=== PATIENT | female | born 1980 | race Caucasian/White ===

== ENCOUNTER → 2020-07-14 11:47 | Outpatient (CLI) | payer OTHER, MEDICAID, SELFPAY ==
[2020-07-16 00:41] LABS: Chlamydia trachomatis NAA Negative (Negative); Neisseria gonorrhoeae NAA Negative (Negative)
== END ==
PROVIDERS: Visit Provider Obstetrics & Gynecology
DX: Z34.82 Encounter for supervision of other normal pregnancy, second trimester (principal); Z3A.18 18 weeks gestation of pregnancy
CPT/HCPCS: 87491; 87591

== ENCOUNTER → 2020-07-24 10:34 | Outpatient (CLI) | payer OTHER, MEDICAID, SELFPAY ==
--- NOTE | 2020-07-24 10:35 | DI.US.S_ITS ---
PROCEDURE: US OB >= 14 WEEKS FETUS INDICATIONS: Anatomy US after 07/20/20 please OUTSIDE/PRIOR DATING DATA: Last menstrual period (LMP): 03/06/20. LMP-based estimated date of delivery (HANS): 12/11/20 . First dating scan (date and location): This examination.. Estimated date of delivery (HANS) from first dating scan: 12/05/20 . TECHNIQUE: Real-time scanning was performed of the fetus, with image documentation and biometric measurements. Endovaginal scanning: Not performed COMPARISON: [facility], US, US OB >= 14 WEEKS FETUS, 07/14/2020, 11:10. FINDINGS: General: A single living intrauterine gestation is present. Presentation: Vertex. Placenta: Placental position is anterior , without previa. Amniotic fluid index: 15.2 cm, normal range is 5-24 cm. Largest pocket 5.2 cm. heart rate: 143 beats per minute. Maternal cervical canal: 4.5 cm long. Normal lower limit is 2.5 cm. biometrics: Biparietal diameter: 5.0 cm, 21 weeks 2 days Head circumference: 18.4 cm, 20 weeks 5 days Abdominal circumference: 15.8 cm, 20 weeks 6 days Femur length: 3.4 cm, 30 20 weeks 5 days Estimated gestational age from initial scan: not applicable. Composite gestational age from present scan: 20 weeks 6 days Estimated weight and percentile: 379 g, 57th percentile Measurement variability for biometric dating: +/- 7 days from 14 weeks to 15 weeks 6 days gestation, +/- 10 days from 16 weeks to 21 weeks 6 days gestation, +/- 2 weeks from 22 weeks to 27 weeks 6 days gestation, +/- 3 weeks for 28 weeks gestation or later. weight reference: 4500 g or EFW >90/95% is considered macrosomia or large for gestational age. EFW <10% is small for gestational age. EFW 5% or less is considered intra-uterine growth restriction. Anatomic survey: Neuro: Ventricles are non-dilated at less than 10 mm. Bilateral choroid plexus cysts measuring 4 x 2 x 2 mm on the left and 3 x 4 x 5 mm on the right. Cisterna magna is normal at 3-11 mm. Cerebellum is normal in size and morphology. Nuchal skin fold: Normal at less than 6 mm between 14-21 weeks gestational age. Face: Nose and lips, facial profile are normal. Spine: No evidence for spina bifida. Heart: 4-chambered heart is present, with normal ventricular outflow tracts. Diaphragm: Diaphragm is intact. Stomach: Left-sided stomach is present. Kidneys: No hydronephrosis. Normal is less than 5 mm in 2nd trimester, less than 7 mm in 3rd trimester. Cord: 3-vessel cord has orthotopic insertion. Bladder: Normal in size. Extremities: All 4 extremities identified. IMPRESSION: Single living intrauterine fetus in vertex presentation. Ultrasound HANS of 12/05/20, concordant with LMP as above. Incidentally noted choroid plexus cysts, which are technically nonspecific finding. Please correlate with aneuploid screening results. Otherwise, normal anatomic survey. Dictated by: Bernard Manzanares M.D. on 07/24/2020 at 13:15 Approved by: Bernard Manzanares M.D. on 07/24/2020 at 13:27
== END ==
PROVIDERS: Referring Provider Obstetrics & Gynecology; Visit Provider Obstetrics & Gynecology
DX: Z34.92 Encounter for supervision of normal pregnancy, unspecified, second trimester (principal); Z3A.20 20 weeks gestation of pregnancy
CPT/HCPCS: 76811

== ENCOUNTER → 2020-08-04 14:11 | Outpatient (CLI) | payer OTHER, MEDICAID, SELFPAY ==
[2020-08-04 15:20] LABS: Appearance Urine UA CLOUDY; Bilirubin Urine UA NEGATIVE (NEGATIVE); Color Urine UA YELLOW; Glucose Urine UA NEGATIVE (Negative); Ketones Urine UA NEGATIVE (NEGATIVE); Leukocyte Esterase Urine UA TRACE (NEGATIVE); Nitrite Urine UA NEGATIVE (Negative); Occult Blood Urine UA NEGATIVE (Negative); Protein Urine UA TRACE (Negative); Specific Gravity Urine UA 1.025 (1.000-1.035); Urobilinogen Urine UA 0.2 E.U./dL (0.2)
[2020-08-04 15:21] LABS: Bacteria Urine None Seen
[2020-08-04 15:31] LABS: Add Manual Diff / Slide Review NO; Basophils Absolute Auto 0 /uL (0-100); Basophils Percent Auto 0.2 % (0-2); Eosinophils Absolute Auto 300 /uL (0-450); Eosinophils Percent Auto 3.2 % (2-4); Hematocrit 40.4 % (36-46); Lymphocytes Absolute Auto 2100 /uL (1100-4500); Lymphocytes Percent Auto 20.6 % (25-40); Mean Corpuscular HGB Conc 34.8 % (30-36); Mean Corpuscular Hemoglobin 32.1 PG (26-34); Mean Corpuscular Volume 92.4 fL (80-100); Monocytes Absolute Auto 600 /uL (0-900); Monocytes Percent Auto 5.4 % (3-14); Neutrophils Absolute Auto 7400 /uL (1500-7000); Neutrophils Percent Auto 70.6 % (50-75); Platelet Count 215 X10^3/uL (150-400); RBC Urine 5-10/HPF (0-5/HPF); Red Blood Cell Count 4.37 X10^6/uL (4.0-5.2); Red Cell Distribution Width 13.2 % (11.6-14.8); Squamous Epithelial Cell Urine 10-30 /HPF (0-5/HPF); WBC Urine 1-5/HPF (0-5/HPF); White Blood Cell Count 10.4 X10^3/uL (4.5-11.0)
[2020-08-04 15:54] LABS: Creatinine Urine Random 196.2 mg/dL; Protein (Total) Urine Random 10 mg/dL (0-12); Protein Creatinine Ratio Urine 0.05 GRAM/24H
[2020-08-04 16:01] LABS: Alanine Aminotransferase 22 IU/L (<35); Albumin 3.5 g/dL (3.5-5.0); Albumin Globulin Ratio 1.1 (1.0-2.8); Alkaline Phosphatase 70 U/L (38-126); Aspartate Aminotransferase 29 IU/L (14-36); Bilirubin Total 0.6 mg/dL (0.2-1.3); Blood Urea Nitrogen 5 mg/dL (7-17); Calcium 9.3 mg/dL (8.4-10.2); Carbon Dioxide 17 mmol/L (22-32); Chloride 110 mmol/L (98-107); Estimated Glomerular Filt Rate > 60.0 mL/min (>60); Globulin 3.1 g/dL (1.7-4.1); Glucose 121 mg/dL (70-100); HEMOLYSIS < 15 (0-50); Lactate Dehydrogenase 390 U/L (313-618); Potassium 3.3 mmol/L (3.4-5.1); Sodium 135 mmol/L (137-145); Total Protein 6.6 g/dL (6.3-8.2); Uric Acid 3.5 mg/dL (2.5-6.2)
[2020-08-06 06:36] LABS: RPR Screen Non Reactive (Non Reactive)
[2020-08-06 12:35] LABS: Varicella IgG Antibody >4000 index (Immune >165)
[2020-08-06 13:32] LABS: HIV 1 & 2 Ab/Ag 4th Gen Combo NEGATIVE (NEGATIVE); Hep C Virus Ab w/Reflex Quant NEGATIVE s/c (NEGATIVE); Hepatitis B Surface Antigen NEGATIVE s/c (NEGATIVE)
[2020-08-08 17:24] LABS: Rubella Antibody IgG 13.3 IU/mL (>15)
== END ==
PROVIDERS: Referring Provider Obstetrics & Gynecology; Visit Provider Obstetrics & Gynecology
DX: O09.529 Supervision of elderly multigravida, unspecified trimester (principal)
CPT/HCPCS: 36415; 80053; 80055; 81003; 81015; 81420; 82570; 83615; 84156; 84550; 86787; 86803; 86850; 86900; 86901; 87086; 87389

== ENCOUNTER → 2020-09-18 10:06 | Outpatient (CLI) | payer OTHER, MEDICAID, SELFPAY ==
[2020-09-18 11:28] LABS: Hemoglobin 13.2 g/dL (12.0-16.0)
[2020-09-18 13:04] LABS: GTT (PREG) 1 Hour PP 50gm Dose 140 mg/dL (76-139)
== END ==
PROVIDERS: Referring Provider Obstetrics & Gynecology; Visit Provider Obstetrics & Gynecology
DX: Z34.82 Encounter for supervision of other normal pregnancy, second trimester (principal); Z3A.26 26 weeks gestation of pregnancy
CPT/HCPCS: 36415; 82950; 85014; 85018

== ENCOUNTER → 2020-09-19 10:44 | Outpatient (CLI) | payer OTHER, MEDICAID, SELFPAY ==
--- NOTE | 2020-09-19 10:45 | DI.US.S_ITS ---
PROCEDURE: US OB LIMITED INDICATIONS: FOLLOW UP CHOROID PLEXUS CYSTS OUTSIDE/PRIOR DATING DATA: Last menstrual period (LMP): 05/06/19 . LMP-based estimated date of delivery (HANS): 12/12/19 . First dating scan (date and location): 07/24/20 Estimated date of delivery (HANS) from first dating scan: 12/05/20 TECHNIQUE: Real-time scanning was performed of the fetus, with image documentation. Endovaginal scanning: No performed COMPARISON: [facility], US OB >= 14 WEEKS FETUS, 07/24/2020, 10:04. [facility], US OB >= 14 WEEKS FETUS, 07/14/2020, 11:10. FINDINGS: A single living intrauterine gestation is present. Presentation: Vertex. Placenta: Placental position is anterior , without previa. Amniotic fluid index: 25.8 cm, normal range is 5-24 cm. Largest pocket measures 7.8 cm. heart rate: 147 beats per minute. Maternal cervical canal: Not well seen sonographically Estimated gestational age from initial scan: 29 weeks 0 days . Previously seen bilateral choroid plexus cysts are not identified on today's examination. There is normal appearance of the chest, stomach, kidneys and urinary bladder. IMPRESSION: Single living intrauterine fetus in vertex presentation. MIKE measures 25.8 cm raising the possibility of developing polyhydramnios. Ultrasound [id number] could be performed as clinically warranted. Dictated by: Bernard Manzanares M.D. on 09/19/2020 at 15:13 Approved by: Bernard Manzanares M.D. on 09/19/2020 at 15:17
== END ==
PROVIDERS: Referring Provider Obstetrics & Gynecology; Visit Provider Obstetrics & Gynecology
DX: Z36.2 Encounter for other antenatal screening follow-up (principal); Z3A.29 29 weeks gestation of pregnancy
CPT/HCPCS: 76815

== ENCOUNTER → 2020-09-28 09:31 | Outpatient (CLI) | payer OTHER, MEDICAID, SELFPAY ==
[2020-09-28 11:10] LABS: Glucose Fasting Gestational 88 mg/dL (76-95)
[2020-09-28 11:12] LABS: Glucose 1 Hour Gest 151 mg/dL (76-180)
[2020-09-28 13:09] LABS: Glucose Tol Interp,Gestational INTERPRETATION
[2020-09-28 13:30] LABS: Glucose 2 Hour Gest 131 mg/dL (76-155)
[2020-09-28 15:23] LABS: Glucose 3 Hour Gest 108 mg/dL (76-140)
== END ==
PROVIDERS: Referring Provider Obstetrics & Gynecology; Visit Provider Obstetrics & Gynecology
DX: R73.09 Other abnormal glucose (principal)
CPT/HCPCS: 36415; 82951; 82952

== ENCOUNTER → 2020-10-24 10:08 | Outpatient (CLI) | payer OTHER, MEDICAID, SELFPAY | PROVIDERS: Visit Provider Obstetrics & Gynecology | DX: N39.0 Urinary tract infection, site not specified (principal); R82.4 Acetonuria | CPT/HCPCS: 87086 ==